=== PATIENT | female | born 1950 | race Two or more races ===

== ENCOUNTER 2016-10-24 18:42 | Inpatient (IN) | payer MEDICARE ==
[~2016-10-24] VITALS: Ht 157.5 cm; Wt 81.9 kg
--- NOTE | 2016-10-24 18:55 | NUR ---
ABDOMINAL PAIN; CAME TO ER FOR TREATMENT AND EVALUATION
--- NOTE | 2016-10-24 19:15 | NUR ---
ASSUMED CARE. RECEIVED REPORT FROM AM SHIFT JALEN MA. PT AAOX4 NO ACUTE DISTRESS NOTED, RESP EVEN AND UNLABORED. PT C/O ABDOMINAL PAIN X3 DAYS. STARTED SL 18G TO R AC, BLOOD DRAWN AND SENT TO LAB.
--- NOTE | 2016-10-24 19:21 | NUR ---
CALLED [facility] FOR TRANSPORTATION GOING TO [facility]
--- NOTE | 2016-10-24 19:23 | NUR ---
PT AMBULATORY TO THE BATHROOM WITH STEADY GAIT NOTED.
[2016-10-24 19:24] LABS: BASOPHILS # (AUTO) 0.2 /CMM (0.0-0.2); BASOPHILS % (AUTO) 1.2 % (0.0-2.0); EOSINOPHILS % (AUTO) 0.1 % (0.0-6.0); HEMATOCRIT 43 % (33-45); HEMOGLOBIN 14.4 g/dL (11.5-14.8); LYMPHOCYTES # (AUTO) 2.6 /CMM (0.8-4.8); LYMPHOCYTES % (AUTO) 20.2 % (20.0-44.0); MEAN CORPUSCULAR HEMOGLOBIN 29 PG (26.0-33.0); MEAN CORPUSCULAR HGB CONC 34 g/dl (31.0-36.0); MEAN CORPUSCULAR VOLUME 86 fL (82-100); MONOCYTES % (AUTO) 7.8 % (2.0-12.0); NEUTROPHILS # (AUTO) 9.2 /CMM (1.8-8.9); NEUTROPHILS % (AUTO) 70.7 % (43.0-81.0); PLATELET COUNT (AUTO) 224 /CMM (150-450); RDW COEFFICIENT OF VARIATION 14.4 (11.5-15.0); RED BLOOD CELL COUNT(AUTO) 4.94 MIL/uL (4.0-5.2)
[2016-10-24] MEDS ORDERED: MORPHINE SULFATE INJ 2 MG/ML DISP.SYRIN ONE (19:25)
[2016-10-24] MEDS ORDERED: ONDANSETRON HCL/PF 4 MG/2 ML VIAL ONE (19:25)
[2016-10-24] MEDS ORDERED: IV SET PRIMARY 1 EA INFUS.SET MC ONE ×2 (19:26→21:53)
[2016-10-24] MEDS ORDERED: IV NS 0.9% 1,000 ML ONE ×2 (19:26→21:53)
[2016-10-24] MEDS ORDERED: ONDANSETRON HCL/PF - ER 4 MG/2 ML VIAL IV ONE (19:30)
[2016-10-24] MEDS ORDERED: IV NS 0.9% 1,000 ML BAG IV ONE ×2 (19:30→22:00)
[2016-10-24] MEDS ORDERED: MORPHINE SULFATE INJ 2 MG/ML DISP.SYRIN IV ONE (19:30)
[2016-10-24 19:38] LABS: ALBUMIN 3.8 g/dL (3.4-5.0); BILIRUBIN,DIRECT 0.1 mg/dL (0.0-0.2); BILIRUBIN,TOTAL 0.5 mg/dL (0.2-1.0); CALCIUM, SERUM 9.3 mg/dL (8.5-10.1); CREATININE 1.1 mg/dL (0.6-1.3); POTASSIUM 3.8 mmol/L (3.5-5.1)
[2016-10-24 19:39] LABS: APPEARANCE,URINE Clear (CLEAR); BLOOD, URINE Moderate Ery/uL (NEGATIVE); COLOR,URINE Yellow (YELLOW); KETONES,URINE Trace (NEGATIVE); LEUKOCYTE ESTERASE ,URINE Negative (NEGATIVE); NITRITE, URINE Negative (NEGATIVE); PH,URINE 5.5 (5.0-8.0); PROTEIN,URINE 30 mg/dl (NEGATIVE); UGLUCOSE Negative (NEGATIVE); UROBILINOGEN,URINE 0.2 EU/dL (0.2)
[2016-10-24 19:40] LABS: BILIRUBIN,URINE MODERATE (NEGATIVE)
[2016-10-24 19:42] LABS: ADD URINE CULTURE NO; BACTERIA,URINE Few /HPF (None Seen); SQUAMOUS EPITHELIAL CELL,UR Few /HPF (None Seen); URINE AMORPHOUS URATE Few /HPF (None Seen)
--- NOTE | 2016-10-24 20:16 | NUR ---
TRANSPORT AT BEDSIDE TO TRANSPORT PT TO [facility] FOR CT ABD/PELVIS. REPORT GIVEN TO EMT.
--- NOTE | 2016-10-24 21:28 | NUR ---
PT BACK FROM [facility]. PENDING CT ABD/PELVIS RESULT.
[2016-10-24] MEDS ORDERED: PIPERACILLIN /TAZOBACTAM 3.375 G in IV D5W 50 ML IV ONE (21:30)
--- NOTE | 2016-10-24 21:30 | NUR ---
DR MONTEJO ON THE PHONE WITH GENERAL SURGEON DR COTTON.
[2016-10-24] MEDS ORDERED: PIPERACILLIN /TAZOBACTAM 3.375 G VIAL IV ONE ×3 (21:54→23:55)
--- NOTE | 2016-10-24 22:21 | NUR ---
REPORT CALLED M/S JALEN DUONG. WILL TRANSPORT PT.
--- NOTE | 2016-10-24 22:30 | NUR ---
RN NOTES ADMITTED A 66 YEARS OLD FEMALE PT FROM ER VIA [facility], WITH PRIMARY DIAGNOSIS OF ACUTE APPENDICITIS, UNDER DR FARAH. PT ALERT AND ORIENTED X4, ABDOMINAL PAIN AT TOLERABLE LEVEL AT THIS TIME 4/10. PT DENIES NAUSEA AND VOMITING. VITAL SIGNS STABLE, AFEBRILE, TEMP 98.9. IV ACCESS ON RIGHT AC PATENT AND INTACT WITH ONGOING IVF INFUSING WELL. PT SKIN CLEAR AND INTACT. PT IS AMBULATORY WITH STEADY GAIT. PLACED PT ON NPO FOR ANTICIPATED SURGERY TOMORROW. KEPT PT COMFORTABLE AND ATTENDED, WITH CALL LIGHT WITHIN REACH. ALL ORDERS NOTED AND CARRIED OUT. WILL CONTINUE TO MONITOR PT.
[2016-10-24] MEDS ORDERED: IV SET PRIMARY PUMP SET 1 EA INFUS.SET MC ONE (22:40)
[2016-10-24 23:00] VITALS: BP 106/59
[2016-10-24] MEDS ORDERED: IV D5/0.45 NACL 1,000 ML IV PRN (23:14)
[2016-10-24] MEDS ORDERED: Z GUARD REMEDY 2 OZ OINT TP PRN (23:30)
--- NOTE | 2016-10-24 23:30 | NUR ---
RN NOTES RECEIVED A CALL FROM NURSING FISH TRAPPER, PT IS SCHEDULED FOR APPENDECTOMY AT 0630 TOMORROW MORNING TO BE DONE BY DR VELEZ. PT MADE AWARE. WILL SECURE CONSENT FOR THE SURGERY.
[2016-10-24] MEDS ORDERED: IV D5/0.45 NACL 1,000 ML IV ONE (23:54)
[2016-10-24] MEDS ORDERED: SECONDARY IV SET 1 EA INFUS.SET MC ONE (23:56)
[2016-10-24] MEDS ORDERED: IV D5W 50 ML IV ONE (23:56)
[2016-10-25] MEDS ORDERED: PIPERACILLIN /TAZOBACTAM 3.375 G in IV D5W 50 ML IV SCH ×2
[2016-10-25 00:52] VITALS: BP 106/59
[2016-10-25] MEDS ORDERED: MORPHINE SULFATE INJ 2 MG/ML DISP.SYRIN ONE (02:05)
[2016-10-25] MEDS ORDERED: ACETAMINOPHEN 325 MG TABLET ONE (02:05)
[2016-10-25] MEDS: ACETAMINOPHEN 325 MG TABLET PO PRN ×2 (02:11→21:18)
--- NOTE | 2016-10-25 02:11 | NUR ---
RN NOTES VITAL SIGNS CHECKED BP 102/65 TEMP 99.9 HR 75 RR19 O2SAT 97% AT ROOM AIR. PAT COMPLAINING OF ABDOMINAL PAIN 03/24. TYLENOL 650 MG TAB GIVEN PO FOR FEVER AND MORPHINE SULFATE 2MG GIVEN IV FOR ABDOMINAL PAIN. PT DENIES NAUSEA AND VOMITING. WILL CONTINUE TO MONITOR PT.
[2016-10-25] MEDS: MORPHINE SULFATE INJ 2 MG/ML DISP.SYRIN IV PRN ×4 (02:12→22:35)
--- NOTE | 2016-10-25 02:50 | NUR ---
RN NOTES PT FOR LAPAROSCOPIC APPENDECTOMY WITH POSSIBLE OPEN BY DR VELEZ AT 0630 AM, CONSENT SECURED FROM THE PT.
[2016-10-25 04:10] LABS: BASOPHILS # (AUTO) 0.1 /CMM (0.0-0.2); BASOPHILS % (AUTO) 0.8 % (0.0-2.0); EOSINOPHILS % (AUTO) 0.2 % (0.0-6.0); HEMATOCRIT 36 % (33-45); LYMPHOCYTES # (AUTO) 2.1 /CMM (0.8-4.8); LYMPHOCYTES % (AUTO) 21.7 % (20.0-44.0); MEAN CORPUSCULAR HEMOGLOBIN 29 PG (26.0-33.0); MEAN CORPUSCULAR HGB CONC 34 g/dl (31.0-36.0); MEAN CORPUSCULAR VOLUME 86 fL (82-100); MONOCYTES # (AUTO) 0.7 /CMM (0.1-1.30); MONOCYTES % (AUTO) 7.3 % (2.0-12.0); NEUTROPHILS # (AUTO) 6.9 /CMM (1.8-8.9); PLATELET COUNT (AUTO) 198 /CMM (150-450); RED BLOOD CELL COUNT(AUTO) 4.16 MIL/uL (4.0-5.2); WHITE BLOOD COUNT (AUTO) 9.8 K/uL (4.3-11.0)
[2016-10-25 04:25] LABS: INR 1.04 (0.87-1.13); PROTHROMBIN TIME 11.2 SECS (9.5-12.7)
[2016-10-25 04:27] LABS: BILIRUBIN,TOTAL 0.5 mg/dL (0.2-1.0); CALCIUM, SERUM 8.4 mg/dL (8.5-10.1); MAGNESIUM 2.1 mg/dL (1.8-2.4); PHOSPHORUS 3.4 mg/dL (2.5-4.9); POTASSIUM 3.4 mmol/L (3.5-5.1); TOTAL PROTEIN, SERUM 6.7 g/dL (6.4-8.2)
[2016-10-25 04:35] LABS: THYROID STIMULATING HORMONE 0.76 uIU/mL (0.358-3.74)
--- NOTE | 2016-10-25 06:00 | NUR ---
RN NOTES PT WAS PICKED UP BY OR STAFF, ABDOMINAL PAIN AT TOLERABLE LEVEL AT THIS TIME. AFEBRILE, WITH LATEST TEMP OF 98.6. DUE ZOSYN WILL BE GIVEN TO OR. PT TO OR IN STABLE CONDITION.
[2016-10-25] MEDS ORDERED: LIDOCAINE HCL/PF 1% 30 ML SDV ONE (06:14)
[2016-10-25] MEDS ORDERED: BUPIVACAINE MPF W/EPI 0.25% 30 ML VIAL ONE (06:14)
[2016-10-25] MEDS ORDERED: FENTANYL PF 100MCG/2ML AMPUL ONE ×3 (06:19→09:13)
[2016-10-25] MEDS ORDERED: MIDAZOLAM HCL 2 MG/2ML VIAL ONE (06:19)
[2016-10-25] MEDS ORDERED: ROCURONIUM BROMIDE 50 MG/5 ML ONE ×2 (06:19)
[2016-10-25] MEDS ORDERED: PIPERACILLIN /TAZOBACTAM 3.375 G VIAL IV ONE (06:27)
[2016-10-25] MEDS ORDERED: IV D5W 50 ML IV ONE (06:27)
--- NOTE | 2016-10-25 07:28 | NUR ---
RECEIVED PT. REPORT FROM WOOD SAWYER NURSE. PT. CURRENTLY IN OR. WILL WAIT FOR PT. TO ARRIVE ON THE UNIT AND CONTINUE SEAN.
[2016-10-25] MEDS ORDERED: HYDROMORPHONE INJ 2 MG/ML DISP.SYRIN ONE (09:23)
[2016-10-25] MEDS ORDERED: ATOR10TA PO (10:01)
[2016-10-25] MEDS ORDERED: PANT40TA4 PO (10:01)
[2016-10-25] MEDS ORDERED: LEVO112T2 PO (10:01)
[2016-10-25] MEDS ORDERED: MELO-264 PO (10:01)
[2016-10-25] MEDS ORDERED: LINA145C PO (10:01)
[2016-10-25] MEDS ORDERED: CITA10TA9 PO (10:01)
--- NOTE | 2016-10-25 10:22 | NUR ---
PT ARRIVED ON UNIT ACCOMPANIED BY AN OR STAFF IN STABLE CONDITION. NO SOB OR SIGNS OF DISTRESS AT THIS TIME. NO PAIN EXPRESSED BY PATIENT. WILL CONTINUE TO MONITOR AND CARRY OUT ORDERS
[2016-10-25] MEDS: POTASSIUM CL. PREMIX PERIPHER. 50 ML IV SCH ×2 (12:02→13:51)
[2016-10-25] MEDS ORDERED: SECONDARY IV SET 1 EA INFUS.SET MC ONE (12:06)
[2016-10-25] MEDS: PIPERACILLIN /TAZOBACTAM 3.375 G in IV D5W 50 ML IV SCH ×2 (12:38→18:14)
[2016-10-25] MEDS: IV LR 1000 ML 1,000 ML IV PRN (12:39)
--- NOTE | 2016-10-25 14:50 | NUR ---
PT WAS ABLE TO TOLERATE THE FIST BAG OF K+, BUT COULD NOT TOLERATE ANOTHER. PO VERSION WAS ORDERED. WILL ADMINISTER AT SCHEDULED TIME.
[2016-10-25 16:00] VITALS: BP 104/54
[2016-10-25] MEDS: MAG HYDROX/AL HYDROX/SIMETH 30 ML UDC PO PRN (18:13)
[2016-10-25] MEDS ORDERED: POTASSIUM CHLORIDE 10 MEQ TABLET.SA PO ONE (18:30)
--- NOTE | 2016-10-25 19:05 | NUR ---
MS RN CLOSING NOTES PT IN STABLE CONDITION. NO SOB OR SIGNS OF DISTRESS NOTED. ALL ORDERS WERE CARRIED OUT THROUGHOUT SHIFT AND ALL SAFETY MEASURES WERE ENFORCED. WILL ENDORSE TO NIGHTSHIFT NURSE FOR SEAN
--- NOTE | 2016-10-25 19:30 | NUR ---
MS/DAIRY QUALITY ASSURANCE OFFICER; RECEIVED PT. IN BED AWAKE, ALERT AND ORIENTED X 4. PT SAID WITH LOT OF ABD PAIN DUE TO GAS. PP. ENCOURAGED TO AMBULATE. NOTED AT THIS TIME IVF ON PROGRESS BUT THE IV SITE ON LAC IS RED AND SWOLLEN. IVF I STOPPED. I ASKED THE PT. I HAVE TO REMOVED THE IV AND I WILL INSERT A NEW IV LINE AND PT OK WITH IT. WITH GUERRERO X1 AND I EMPTIED 60 ML BLOODED COLOR DRAINAGE. WITH DVT PUMP ON LOWER LEGS. BED ON LOWER POSITION AND LOCKED FOR SAFETY. SIDE RAILS ARE UP FOR SAFETY. CONTINUE TO MONITOR CALL LIGHT WITHIN REACH.
--- NOTE | 2016-10-25 19:55 | NUR ---
MS/ROOM MANAGER; PT ASSISTED TO THE BATHROOM WITH SYSTEMS PROTECTION TECHNICIAN AND ME WITH USED OF WALKER ABLE TO AMBULATE WITH PAIN. VOIDED ONLY. PT AMBULATE TOWARDS THE HALLWAY WITH WALKER TOLERATED FAIRLY.
--- NOTE | 2016-10-25 20:40 | NUR ---
MS/BELL ATTENDANT; PT IN BED AT THIS TIME. VISITED BY THE SURGEON DR. VELEZ.
--- NOTE | 2016-10-25 20:45 | NUR ---
MS/ICE PLATFORM SUPERVISOR; NEW IV LINE STARTED ON LT ARM # 20 ANGIO CATH. IVF RESUMED. ENC. TO ELEVATE THE RT ARM DUE TO SWELLING.
[2016-10-25 20:47] VITALS: BP 95/51
[2016-10-25 22:15] VITALS: BP 108/52
--- NOTE | 2016-10-25 22:42 | NUR ---
MS/RN NOTES PATIENT VERBALIZED PAIN 8/10 IN ALL OVER BODY. REQUEST FOR PAIN MEDICATION. B/P CHECKED AND INFORM TO DRINK MORE FLUIDS. B/P 108/70. CHARGE NURSE INFORM AND MADE AWARE.WILL CONTINUE TO ASSESS EFFECTIVENESS OF PAIN MEDICATION.
--- NOTE | 2016-10-26 03:25 | NUR ---
MS/RN NOTES PATIENT REPORTED SOME ABDOMINAL CRAMPING AND NO BM LAST 3 DAYS AGO. ENDORSE TO RESIDENTIAL THERAPIST PATIENT NEED MOM AND WILL BE TAKING IT BEFORE SHE GETS PAIN PILL. B/P CHECK AT 105/55 PROVIDED FLUIDS FOR PATIENT.
--- NOTE | 2016-10-26 04:39 | NUR ---
MS/RN NOTES PATIENT VERBALIZED 8/10 PAIN ALL OVER BODY. PROVIDED COMFORT MEASURE, FLUIDS AND INFORM THE NEED TO DEEP BREATH. BLOOD PRESSURE RE CHECK AT 107/58. AND RE CHECK AGAIN AT 98/56 WITH OXYGEN 2 L AT 92% VIA NC. INFORM PATIENT THAT NEED TO MONITOR AT THIS TIME TO PREFENT COMPLICATION. PATIENT WAS INFORMED AND VERBALIZE UNDERSTANDING TO HOLD TH EPAIN MEDICATION AT THIS TIME.
[2016-10-26] MEDS: PIPERACILLIN /TAZOBACTAM 3.375 G in IV D5W 50 ML IV SCH ×4 (05:28→17:35)
--- NOTE | 2016-10-26 06:40 | NUR ---
MS/SERVICE STATION HELPER; PT SAID SHE DID NOT SLEEP GOOD. IVF ON PROGRESS. NO BM VOIDED. HAS BEEN UP AND WALKED. CONTINUE TO MONITOR. GUERRERO INTACT 90 ML OUTPUT.WILL ENDORSE TO THE DAY SHIFT NURSE.
[2016-10-26] MEDS: MORPHINE SULFATE INJ 2 MG/ML DISP.SYRIN IV PRN ×3 (07:20→18:27)
--- NOTE | 2016-10-26 07:30 | NUR ---
MS RN OPENING NOTES RECEIVED PT. FROM NIGHTSHIFT NURSE IN STABLE CONDITION. A/O X4. IV LEFT FOREARM 20G INTACT AND PATENT. NO REDNESS OR INFILTRATION NOTED. LR RUNNING AT 100ML/HR. PT TOLERATING IT WELL. NO SOB OR SIGNS OF DISTRESS NOTED. BREATHING EVEN AND UNLABORED. GUERRERO INTACT AND DRAINING. BED IN LOW LOCKED POSITION, SIDE RAILS UP X2, CALL LIGHT WITHIN PT. REACH. WILL CONTINUE TO MONITOR.
[2016-10-26 07:34] LABS: CALCIUM, SERUM 8.3 mg/dL (8.5-10.1); CREATININE 1.3 mg/dL (0.6-1.3); POTASSIUM 4.1 mmol/L (3.5-5.1)
[2016-10-26 08:00] VITALS: BP 106/61
[2016-10-26] MEDS: MAG HYDROX/AL HYDROX/SIMETH 30 ML UDC PO PRN (08:47)
[2016-10-26] MEDS: DOCUSATE SODIUM 100 MG CAPSULE PO SCH (08:47)
[2016-10-26] MEDS ORDERED: IV NS 0.9% 250 ML IV ONE (13:28)
[2016-10-26 16:00] VITALS: BP 112/59
[2016-10-26] MEDS: ACETAMINOPHEN 325 MG TABLET PO PRN (16:58)
--- NOTE | 2016-10-26 17:50 | NUR ---
MS RN NOTES PT STATES THAT SHE IS MISSING HER NECKLACE AND EARRINGS. SHE STATES THAT SHE WORE THEM WHEN SHE WAS TAKEN TO THE OR FOR HER RECENT PROCEDURE, AND THEY WERE NEVER RETURNED TO HER. OR WAS CALLED AND THEY SAID THE ITEMS WERE GIVEN TO HER SON WHO WAS PRESENT WITH HER BEFORE HER OPERATION. THE SON WAS CALLED AND HE STATED THAT THE OR NURSES DID NOT GIVE HIM ANYTHING. CHARGE NURSE WAS NOTIFIED
--- NOTE | 2016-10-26 19:25 | NUR ---
MS/RN OPENING NOTES PATIENT IS ALERT, ORIENTEDX3 WITH FAMILY MEMBER. NO S/S OF SOB OR DISTRESS. PAIN MEDICATION GIVEN 30 MINUTES AGO WILL CHECK PAIN EFFECTIVENESS. CALL LIGHTS WITHIN REACH CLEAR LIQUIDS ORDERED. WILL CONTINUE MONITORING AND ATTEND NEEDS.RECEIVED ENDORSEMENT FROM AM RN REGARDING SEAN.
[2016-10-26] MEDS: IV LR 1000 ML 1,000 ML IV PRN (19:51)
[2016-10-26 20:00] VITALS: BP_SYST 125; BP_SYST 97; BP_DIAS 54; BP_DIAS 57
[2016-10-26] MEDS: HYDROCODONE/APAP 5/325MG 1 EACH TABLET PO PRN (21:54)
[2016-10-27] MEDS: PIPERACILLIN /TAZOBACTAM 3.375 G in IV D5W 50 ML IV SCH ×5 (00:24→23:46)
[2016-10-27] MEDS: MORPHINE SULFATE INJ 2 MG/ML DISP.SYRIN IV PRN ×4 (01:44→21:25)
[2016-10-27] MEDS: MAG HYDROX/AL HYDROX/SIMETH 30 ML UDC PO PRN (06:23)
--- NOTE | 2016-10-27 06:32 | NUR ---
MS/RN CLOSING NOTES PATIENT AWAKE, ALERTX3. ABLE TO VERBALIZE NEEDS AT ALL TIMES. ASSIST TO SITTING POSITION. COOPERATIVE TO CARE. IV ATB INFUSE W/ NO S/S OF ADVERSE REACTION. PATIENT REPORTED SOME PAIN IN ABDOMEN AND PREFERED TO SITON CHAIR. ASSISTED. PROVIDE INCENTIVE SPIROMETER FOR DEEP BREATHING. REQUESTED FOR MAALOX TO RELIEVE DISCOMFORT. PAIN MEDICATION TO GIVE PATIENT LEVEL PAIN IS 7/10. WILL CONTINUE TO MONITOR.
[2016-10-27] MEDS: HYDROCODONE/APAP 5/325MG 1 EACH TABLET PO PRN ×3 (06:46→18:39)
--- NOTE | 2016-10-27 06:51 | NUR ---
MS/RN NOTES PATIENT WITH ABDOMINAL PAIN OF 01/21. PROVIDED COMFORT MEASURES. REPOSITION FOR COMFORT, ASSISTED WITH AMBULATION FEW STEPS AND HELP SIT IN CHAIR, PAIN MEDICATION REQUESTED. ADM PO NORCO 5/325 TO RELIEVE PAIN. WILL MONITOR EFFECTIVENESS AND ENDORSE TO AM RN.
--- NOTE | 2016-10-27 07:51 | NUR ---
RN MS NOTES PT IN BED, AWAKE, ALERT AND ORIENTED, STILL WITH COMPLAINT OF ABDOMINAL PAIN, RESPIRATIONS NORMAL AND NOT LABORED, IV FLUIDS INFUSING WELL, CALL LIGHT WITHIN REACH, NEEDS ATTENDED.
[2016-10-27 07:59] LABS: BASOPHILS % (AUTO) 0.2 % (0.0-2.0); EOSINOPHILS % (AUTO) 0.1 % (0.0-6.0); HEMATOCRIT 41 % (33-45); HEMOGLOBIN 13.6 g/dL (11.5-14.8); LYMPHOCYTES # (AUTO) 2.8 /CMM (0.8-4.8); LYMPHOCYTES % (AUTO) 18.1 % (20.0-44.0); MEAN CORPUSCULAR HEMOGLOBIN 29 PG (26.0-33.0); MEAN CORPUSCULAR HGB CONC 33 g/dl (31.0-36.0); MEAN CORPUSCULAR VOLUME 88 fL (82-100); MONOCYTES # (AUTO) 0.5 /CMM (0.1-1.30); MONOCYTES % (AUTO) 3.4 % (2.0-12.0); NEUTROPHILS # (AUTO) 12.2 /CMM (1.8-8.9); NEUTROPHILS % (AUTO) 78.2 % (43.0-81.0); PLATELET COUNT (AUTO) 309 /CMM (150-450); RDW COEFFICIENT OF VARIATION 15.2 (11.5-15.0); RED BLOOD CELL COUNT(AUTO) 4.69 MIL/uL (4.0-5.2); WHITE BLOOD COUNT (AUTO) 15.7 K/uL (4.3-11.0)
[2016-10-27 08:00] VITALS: BP 114/61
[2016-10-27 08:08] LABS: CALCIUM, SERUM 8.9 mg/dL (8.5-10.1); CREATININE 1.1 mg/dL (0.6-1.3); POTASSIUM 3.7 mmol/L (3.5-5.1)
[2016-10-27] MEDS: DOCUSATE SODIUM 100 MG CAPSULE PO SCH (08:33)
[2016-10-27] MEDS: MELOXICAM 7.5 MG TABLET PO SCH ×2 (09:00→10:49)
[2016-10-27] MEDS: ATORVASTATIN 10 MG TABLET PO SCH ×2 (09:30→10:48)
[2016-10-27] MEDS: LEVOTHYROXINE SODIUM 112 MCG TABLET PO SCH (10:48)
[2016-10-27] MEDS: CITALOPRAM HYDROBROMIDE 10 MG TABLET PO SCH (10:49)
[2016-10-27] MEDS: PANTOPRAZOLE 40 MG TABLET.DR PO SCH (10:49)
--- NOTE | 2016-10-27 11:51 | NUR ---
RN MS NOTES PT IN BED, AWAKE, ALERT AND ORIENTED, PAIN MEDICATION GIVEN FOR PAIN MANAGEMENT ORDERED, GUERRERO DRAINING PINKISH DRAIN, PT SEEN BY NONA TECHNICAL SERVICE ENGINEER, PLAN OF CARE DISCUSSED WITH PT, VERBALIZED UNDERSTANDING, PT SEEN BY DR. VELEZ, ORDERED FOR CT OF THE ABDOMEN WITH PO CONTRAST, PT INFORMED, PT ABLE TO GO TO BATHROOM WITH STANDBY ASSISTANCE WITH A WALKER, OUT OF BED TOLERATED, NEEDS ATTENDED.
[2016-10-27] MEDS ORDERED: DIATR MEGLU/DIATRIZOATE SODIUM 30 ML BOTTLE (GASTROGRAPHIN) ONE ×2 (12:20→14:24)
[2016-10-27] MEDS: ONDANSETRON HCL/PF 4 MG/2 ML VIAL IVP PRN ×2 (14:11→21:28)
[2016-10-27 16:00] VITALS: BP 133/79
[2016-10-27] MEDS: IV LR 1000 ML 1,000 ML IV PRN (16:55)
--- NOTE | 2016-10-27 18:30 | NUR ---
RN MS NOTES PT IN BED, RESTING, ALERT AND ORIENTED, PAIN MEDICATION GIVEN FOR PAIN MANAGEMENT ORDERED, COMPLETED CT SCAN OF ABDOMEN WITH ORAL CONTRAST, AWAITING RESULTS, NOT IN DISTRESS, CALL LIGHT WITHIN REACH, ASSISTED TO BATHROOM NEEDED, PM CARE RENDERED, ALL NEEDS ATTENDED.
[2016-10-27 20:00] VITALS: BP 123/68
--- NOTE | 2016-10-27 20:00 | NUR ---
PATIENT IN BED, ALERT AND ORIENTED X4, CALM, 02 SAT IS 88%, PUT PATIENT TO 3LPM VIA NC, 02 SAT IS 93%. S/P LAPAROSCOPIC APPENDECTOMY, COMPLAINING OF PAIN OF 6/10, RECEIVED NORCO FROM AM SHIFT. ABDOMINAL SX SITES HAS NO BLEEDING, RUQ GUERRERO IS DRAIN WITH SEROSANGUINEOUS FLUID, DRESSING IS INTACT, LEFT FA PERIPHERAL LINE IS INFUSING WELL, PER ENDORSEMENT, PATIENT UNABLE TO TOLERATE SOLID FOOD, STILL ON CLEAR LIQUID DIET, ADVANCED TOLERATED. WITH EPISODES OF VOMITING, WAS GIVEN ZOFRAN FROM AM SHIFT. REPOSITIONED FOR COMFORT, NEEDS ATTENDED, CALL LIGHT WITHIN REACH.
[2016-10-28] MEDS: HYDROCODONE/APAP 5/325MG 1 EACH TABLET PO PRN ×3 (03:03→14:01)
--- NOTE | 2016-10-28 03:07 | NUR ---
PATIENT ASSISTED TO TOILET, ABLE TO AMBULATE WITH WALKER WITH SUPERVISION, NO DIFFICULTY VOIDING. GIVEN NORCO 5/325 1 TAB PO PRN FOR ABDOMINAL PAIN OF 10. WILL CONTINUE TO MONITOR.
[2016-10-28] MEDS: IV LR 1000 ML 1,000 ML IV PRN (05:35)
[2016-10-28] MEDS: PIPERACILLIN /TAZOBACTAM 3.375 G in IV D5W 50 ML IV SCH ×4 (05:36→23:47)
--- NOTE | 2016-10-28 06:50 | NUR ---
PATIENT IS ALERT AND AWAKE, NO SOB, ON 2LPM VIA NC, HAD VOMITING EPISODE X1, GIVEN ZOFRAN, PROVIDED PAIN MEDICATION DURING SHIFT, GIVEN NORCO AND MORPHINE, ASSISTED TO TOILET TO VOID. LEFT FA PERIPHERAL LINE IS PATENT AND INFUSING WELL, ALL DUE MEDICATIONS GIVEN, CALL LIGHT WITHIN REACH.
--- NOTE | 2016-10-28 06:51 | NUR ---
PATIENT IS ALERT AND AWAKE, ON 2LPM VIA NC, WHEEZING NOTED, COMPLAINING OF PAIN IN BETWEEN COUGHING TO RIGHT SIDE OF CHEST, ACTIVELY COUGHING WITH BLOODY SPUTUM, GIVEN ROBITUSSIN WITH CODEINE. KEPT COMFORTABLE, CALL LIGHT WITHIN REACH. Addendum: 10/28/16 at 0652 by TUSHAR WELSH RN DISREGARD NOTES ABOVE, NOT INTENDED FOR PATIENT
--- NOTE | 2016-10-28 07:30 | NUR ---
RN MS NOTES PT IN BED, AWAKE, ALERT AND ORIENTED, STILL WITH PAIN AT ABDOMEN, PER PT HER PAIN IS GETTING BETTER, ABLE TO WALK WITH A WALKER GOING TO THE BATHROOM, CALL LIGHT WITHIN REACH, IV FLUIDS INFUSING WELL, CALL LIGHT WITHIN REACH.
[2016-10-28 08:00] VITALS: BP 112/62
[2016-10-28] MEDS: LEVOTHYROXINE SODIUM 112 MCG TABLET PO SCH (08:35)
[2016-10-28] MEDS: CITALOPRAM HYDROBROMIDE 10 MG TABLET PO SCH (08:36)
[2016-10-28] MEDS: PANTOPRAZOLE 40 MG TABLET.DR PO SCH (08:36)
[2016-10-28] MEDS: ATORVASTATIN 10 MG TABLET PO SCH (09:00)
[2016-10-28] MEDS: DOCUSATE SODIUM 100 MG CAPSULE PO SCH (09:00)
[2016-10-28] MEDS: MELOXICAM 7.5 MG TABLET PO SCH (09:00)
[2016-10-28 09:56] LABS: CALCIUM, SERUM 8.3 mg/dL (8.5-10.1); CREATININE 1.1 mg/dL (0.6-1.3); POTASSIUM 3.7 mmol/L (3.5-5.1)
--- NOTE | 2016-10-28 13:00 | NUR ---
RN MS NOTES PT IN BED, RESTING, PAIN MEDICATION GIVEN FOR PAIN MANAGEMENT ORDERED, SEEN BY NONA RN ORTHO, PLAN OF CARE DISCUSSED WITH PT, VERBALIZED UNDERSTANDING, ASSISTED TO BATHROOM NEEDED, CALL LIGHT WITHIN REACH.
[2016-10-28 16:00] VITALS: BP 100/48
--- NOTE | 2016-10-28 19:03 | NUR ---
RN MS NOTES PT IN BED, AWAKE, ALERT AND ORIENTED, NO COMPLAINT OF PAIN AT THIS TIME, NOT IN DISTRESS, AMBULATES WITH A WALKER, STATES SHE IS FEELING A LOT BETTER, IV FLUIDS INFUSING WELL, CALL LIGHT WITHIN REACH, ALL NEEDS ATTENDED.
--- NOTE | 2016-10-28 19:25 | NUR ---
RN OPEN NOTES RECEIVED PATIENT AWAKE IN BED WITH FAMILY AT BEDSIDE. A/OX4. NO SIGNS OF DISTRESS OR DISCOMFORT. BREATHING EVEN AND UNLABORED. IV ACCESS IN LEFT FA WITH LR INFUSING, PATENT AND INTACT, NO SIGNS OF REDNESS OR INFILTRATION. PATIENT STATES PAIN IS TOLERABLE RIGHT NOW 11/21. HAS GUERRERO DRAIN WITH PINKISH FLUID NOTED. ABDOMINAL DRESSIGN C/D/I. BED IN LOW LOCKED POSITION WITH SIDE RAILS X2. CALL LIGHT WITHIN REACH. WILL CONTINUE TO MONITOR.
[2016-10-28 20:00] VITALS: BP 111/59
[2016-10-28] MEDS: MORPHINE SULFATE INJ 2 MG/ML DISP.SYRIN IV PRN (21:45)
--- NOTE | 2016-10-28 21:45 | NUR ---
RN NOTES ADMINISTERED MORPHINE SULFATE 2MG IV PRN ORDERED FOR PAIN IN RIGHT ABDOMEN 02/21. VSS BP 113/58 P77. WILL CONTINUE TO MONITOR.
[2016-10-28] MEDS ORDERED: IV SET PRIMARY PUMP SET 1 EA INFUS.SET MC ONE (23:40)
[2016-10-28] MEDS ORDERED: SECONDARY IV SET 1 EA INFUS.SET MC ONE (23:42)
[2016-10-29] MEDS: IV LR 1000 ML 1,000 ML IV PRN (01:58)
[2016-10-29] MEDS: PIPERACILLIN /TAZOBACTAM 3.375 G in IV D5W 50 ML IV SCH ×3 (06:30→17:41)
--- NOTE | 2016-10-29 07:02 | NUR ---
RN CLOSING NOTES PATIENT AWAKE IN BED. A/OX4. NO SIGNS OF DISTRESS OR DISCOMFORT. BREATHING EVEN AND UNLABORED. IV ACCESS IN LEFT FA WITH LR INFUSING, PATENT AND INTACT, NO SIGNS OF REDNESS OR INFILTRATION. PAIN IS TOLERABLE AT THIS TIME. HAS GUERRERO DRAIN WITH PINKISH FLUID NOTED. ABDOMINAL DRESSIGN C/D/I. NO SIGNIFICANT CHANGES THROUGH THE NIGHT. ALL NEEDS MET. BED IN LOW LOCKED POSITION WITH SIDE RAILS X2. CALL LIGHT WITHIN REACH. WILL ENDORSE TO AM SHIFT FOR SEAN.
[2016-10-29 07:49] LABS: BASOPHILS % (AUTO) 0.2 % (0.0-2.0); EOSINOPHILS # (AUTO) 0.1 /CMM (0.0-0.7); EOSINOPHILS % (AUTO) 1.6 % (0.0-6.0); HEMATOCRIT 31 % (33-45); HEMOGLOBIN 10.6 g/dL (11.5-14.8); LYMPHOCYTES # (AUTO) 1.4 /CMM (0.8-4.8); LYMPHOCYTES % (AUTO) 16.2 % (20.0-44.0); MEAN CORPUSCULAR HEMOGLOBIN 30 PG (26.0-33.0); MEAN CORPUSCULAR HGB CONC 34 g/dl (31.0-36.0); MEAN CORPUSCULAR VOLUME 87 fL (82-100); MONOCYTES # (AUTO) 0.8 /CMM (0.1-1.30); MONOCYTES % (AUTO) 9.4 % (2.0-12.0); NEUTROPHILS # (AUTO) 6.1 /CMM (1.8-8.9); NEUTROPHILS % (AUTO) 72.6 % (43.0-81.0); PLATELET COUNT (AUTO) 250 /CMM (150-450); RDW COEFFICIENT OF VARIATION 15.8 (11.5-15.0); RED BLOOD CELL COUNT(AUTO) 3.57 MIL/uL (4.0-5.2); WHITE BLOOD COUNT (AUTO) 8.5 K/uL (4.3-11.0)
[2016-10-29 08:00] VITALS: BP_SYST 110; BP_SYST 114; BP_DIAS 61; BP_DIAS 64
--- NOTE | 2016-10-29 08:00 | NUR ---
MS RN AM NOTES PATIENT AWAKE IN BED. A/OX4. NO SIGNS OF DISTRESS OR DISCOMFORT. BREATHING EVEN AND UNLABORED. IV ACCESS IN LEFT FA WITH LR INFUSING, PATENT AND INTACT, NO SIGNS OF REDNESS OR INFILTRATION.HAS GUERRERO DRAIN WITH PINKISH FLUID NOTED. ABDOMINAL DRESSING C/D/I.NEEDS MET AND ATTENDED.SEEN BY JAYCOB CASTELLANO,OLEKSANDR- PT REFUSED TO BE DISCHARGED TODAY AND OLEKSANDR CASTELLANO AWARE.BED IN LOW,LOCKED POSITION WITH SIDE RAILS X2. CALL LIGHT WITHIN REACH.
[2016-10-29 08:01] LABS: CALCIUM, SERUM 7.9 mg/dL (8.5-10.1); CREATININE 0.9 mg/dL (0.6-1.3); POTASSIUM 3.5 mmol/L (3.5-5.1)
[2016-10-29] MEDS: DOCUSATE SODIUM 100 MG CAPSULE PO SCH (09:00)
[2016-10-29] MEDS: ATORVASTATIN 10 MG TABLET PO SCH (09:00)
[2016-10-29] MEDS: MELOXICAM 7.5 MG TABLET PO SCH (09:00)
[2016-10-29] MEDS: CITALOPRAM HYDROBROMIDE 10 MG TABLET PO SCH (09:01)
[2016-10-29] MEDS: LEVOTHYROXINE SODIUM 112 MCG TABLET PO SCH (09:01)
[2016-10-29] MEDS: PANTOPRAZOLE 40 MG TABLET.DR PO SCH (09:01)
[2016-10-29 15:55] VITALS: BP 107/48
[2016-10-29 16:00] VITALS: BP 107/48
[2016-10-29] MEDS: HYDROCODONE/APAP 5/325MG 1 EACH TABLET PO PRN (17:44)
--- NOTE | 2016-10-29 17:59 | NUR ---
PT SITTING IN BED TALKING ON THE PHONE AND C/O SURGICAL PAIN S/P LAP APPY.NORCO GIVEN FOR PAIN MGT PRN.WILL MONITOR.PT AMBULATED ALONG THE HALLWAY EARLY AFTERNOON TOLERATED WELL.
--- NOTE | 2016-10-29 19:20 | NUR ---
RN OPEN NOTES RECEIVED PATIENT AWAKE IN BED A/OX4. NO SIGNS OF DISTRESS OR DISCOMFORT. BREATHING EVEN AND UNLABORED. IV ACCESS IN LEFT FA WITH LR INFUSING, PATENT AND INTACT, NO SIGNS OF REDNESS OR INFILTRATION. PATIENT STATES PAIN IS TOLERABLE RIGHT NOW 11/21. HAS GUERRERO DRAIN WITH PINKISH FLUID NOTED. ABDOMINAL DRESSING C/D/I. BED IN LOW LOCKED POSITION WITH SIDE RAILS X2. CALL LIGHT WITHIN REACH. WILL CONTINUE TO MONITOR.
[2016-10-29 20:33] VITALS: BP 97/52
[2016-10-30] MEDS: PIPERACILLIN /TAZOBACTAM 3.375 G in IV D5W 50 ML IV SCH ×3 (00:04→11:13)
--- NOTE | 2016-10-30 00:50 | NUR ---
RN NOTES DR. VELEZ IN ROOM TO SEE PATIENT. REMOVED GUERRERO DRAIN. PATIENT TOLERATED WELL. WILL CONTINUE TO MONITOR.
[2016-10-30] MEDS ORDERED: CEFTRIAXONE 1 G in IV D5W 50 ML IV SCH (02:00)
[2016-10-30] MEDS: IV LR 1000 ML 1,000 ML IV PRN (05:27)
--- NOTE | 2016-10-30 07:00 | NUR ---
RN CLOSING NOTES PATIENT AWAKE IN BED A/OX4. NO SIGNS OF DISTRESS OR DISCOMFORT. BREATHING EVEN AND UNLABORED. IV ACCESS IN LEFT HAND WITH LR INFUSING, PATENT AND INTACT, NO SIGNS OF REDNESS OR INFILTRATION. ABDOMINAL DRESSING WHERE GUERRERO DRAIN WAS INSERTED C/D/I. ALL NEEDS MET. NO SIGNIFICANT CHANGES THROUGH THE NIGHT. BED IN LOW LOCKED POSITION WITH SIDE RAILS X2. CALL LIGHT WITHIN REACH. WILL ENDORSE TO AM SHIFT FOR SEAN.
[2016-10-30] MEDS: PANTOPRAZOLE 40 MG TABLET.DR PO SCH (07:51)
[2016-10-30] MEDS: LEVOTHYROXINE SODIUM 112 MCG TABLET PO SCH (07:51)
[2016-10-30 08:00] VITALS: BP_SYST 112; BP_SYST 121; BP_SYST 135; BP_DIAS 61; BP_DIAS 81
--- NOTE | 2016-10-30 08:00 | NUR ---
MS RN NOTE PT. AWAKE, ALERT AND ORIENTED X4. TOLERATED PAIN. CALL LIGHT WITHIN REACH. SIDE RAILS UP. MONITOR CLOSELY.
[2016-10-30] MEDS: CITALOPRAM HYDROBROMIDE 10 MG TABLET PO SCH (08:43)
[2016-10-30] MEDS: DOCUSATE SODIUM 100 MG CAPSULE PO SCH ×2 (08:43→08:47)
[2016-10-30] MEDS: ATORVASTATIN 10 MG TABLET PO SCH ×2 (08:43→08:46)
[2016-10-30] MEDS: MELOXICAM 7.5 MG TABLET PO SCH ×2 (08:43→08:47)
[2016-10-30] MEDS ORDERED: POTASSIUM CHLORIDE 20 MEQ TAB.PRT.SR PO ONE (09:30)
[2016-10-30] MEDS ORDERED: CIPR-262 PO (10:02)
[2016-10-30] MEDS ORDERED: HYDR-3326 PO (10:02)
[2016-10-30] MEDS ORDERED: METR500T PO (10:02)
--- NOTE | 2016-10-30 14:20 | NUR ---
GIVEN DISCHARGE INSTRUCTION TO THE PT. UNDERSTOOD WELL. TOLERATED OF PAIN. REMOVED IV. PT. DISCHARGED FROM [facility] WITH FAMILY.
== END 2016-10-30 14:35 | disposition home or self-care (01) | DRG 341 ==
LOC: ER 18:47 → MED 22:00
PROVIDERS: ADMIT Nurse Practitioner Acute Care; ATTEND Nurse Practitioner Acute Care
PROC: 0DTJ4ZZ Resection of Appendix, Percutaneous Endoscopic Approach (ICD-10-PCS; principal; 2016-10-25 07:01)
DX: K35.80 Unspecified acute appendicitis (principal); N17.0 Acute kidney failure with tubular necrosis; J98.11 Atelectasis; E03.9 Hypothyroidism, unspecified; F32.9 Major depressive disorder, single episode, unspecified; K57.90 Diverticulosis of intestine, part unspecified, without perforation or abscess without bleeding; K58.9 Irritable bowel syndrome, unspecified; K43.2 Incisional hernia without obstruction or gangrene; Z86.010 Personal history of colon polyps; K57.10 Diverticulosis of small intestine without perforation or abscess without bleeding; M54.5 Low back pain; M19.90 Unspecified osteoarthritis, unspecified site; G89.29 Other chronic pain; Z87.891 Personal history of nicotine dependence; I51.7 Cardiomegaly; E66.01 Morbid (severe) obesity due to excess calories; K46.9 Unspecified abdominal hernia without obstruction or gangrene; K76.89 Other specified diseases of liver; M41.9 Scoliosis, unspecified; M51.36 Other intervertebral disc degeneration, lumbar region
CPT/HCPCS: 36415; 71010-TC; 80048-TC; 80053-TC; 80061-TC; 80076-TC; 81000-TC; 83690-TC; 83735-TC; 84100-TC; 84443-TC; 85025-TC; 85730-TC; 87081-TC; 88304-TC; 88305-TC; 94799-TC; A4606; A6402; J0696; J1100; J1170; J1885; J2250; J2270; J2405; J2543; J2704; J2710; J3010; J3480; J3490; J7030; J7050; J7060; J7120; Q9963; Z7610

== ENCOUNTER 2017-08-19 08:55 | Outpatient (CLI) | payer MEDICARE, OTHER ==
[~2017-08-19 08:55] MED LIST: ATOR10TA PO; CIPR-262 PO; CITA10TA9 PO; HYDR-3326 PO; LEVO112T2 PO; LINA145C PO; MELO-107 PO; METR500T PO; PANT40TA4 PO
[2017-08-19] MEDS ORDERED: IV NS 0.9% 250 ML IV ONE (09:18)
[2017-08-19] MEDS ORDERED: CT SWABBABLE VALVE TRANS SET 1 EA INFUS.SET MC ONE (09:18)
[2017-08-19] MEDS ORDERED: IOHEXOL-300 100 ML VIAL IV ONE (09:18)
== END 2017-08-19 23:59 | disposition home or self-care (01) ==
LOC: CT 08:55
PROVIDERS: ATTEND Physical Medicine & Rehabilitation
DX: K57.30 Diverticulosis of large intestine without perforation or abscess without bleeding (principal); K43.9 Ventral hernia without obstruction or gangrene; Z90.49 Acquired absence of other specified parts of digestive tract
CPT/HCPCS: 74160; J7050; Q9967

== ENCOUNTER 2018-04-08 05:43 | Inpatient (IN) | payer MEDICARE, OTHER ==
[~2018-04-08] VITALS: Ht 160 cm; Wt 86.2 kg
[~2018-04-08 05:43] MED LIST changes: -HYDR-3326 PO; +HYDR-3974 PO
[2018-04-08] MEDS ORDERED: ANESTHESIA TRAY IN PYXIS 1 EA TRAY MC ONE (06:55)
[2018-04-08] MEDS ORDERED: BUPIVACAINE MPF 0.5% W/EPI INJ 30 ML VIAL ONE (06:56)
[2018-04-08] MEDS ORDERED: LIDOCAINE 1% INJ 50 ML MDV IJ ONE (06:56)
[2018-04-08] MEDS ORDERED: FENTANYL PF 100MCG/2ML AMPUL ONE (08:11)
[2018-04-08] MEDS ORDERED: KETOROLAC TROMETHAMINE INJ 30 MG/ML VIAL ONE (10:03)
[2018-04-08] MEDS ORDERED: HYDROMORPHONE INJ 2 MG/ML DISP.SYRIN ONE (10:15)
[2018-04-08] MEDS ORDERED: ACETAMINOPHEN 325 MG TABLET PO PRN (10:30)
[2018-04-08] MEDS ORDERED: ONDANSETRON HCL/PF 4 MG/2 ML VIAL IVP PRN (10:30)
[2018-04-08] MEDS ORDERED: MORPHINE SULFATE INJ 2 MG/ML DISP.SYRIN IV PRN (10:30)
--- NOTE | 2018-04-08 11:00 | NUR ---
MS shelter director 63 years old female from OR brought in to unit s/p laparoscopic versus open hernia repair by Dr. Platt. Patient is awake, A/O X4. Bhutanese speaking, speaks and understanding Mozambican. Abdominal incision/lap site open to air, right lower abdomen with slight hematoma and minimal drain of blood, gauze applied. Will cont to monitor. Notified admitting MD.
[2018-04-08 11:09] VITALS: BP 134/75
[2018-04-08] MEDS: HYDROCODONE/APAP 5/325MG 1 EACH TABLET PO PRN ×3 (11:24→20:08)
[2018-04-08 12:19] VITALS: BP 133/68
[2018-04-08 16:00] VITALS: BP 111/63
--- NOTE | 2018-04-08 18:17 | NUR ---
MS RN CLOSING NOTES Patient vitals remains stable, breathing on room air, instructed to use Incentive spirometer while awake and able, verbalized understanding. Abdomen incision/lap site dressing intact, monitor for bleeding, none noted. Abdominal binder in place. No c/o nausea, no vomiting, will advance diet as tolerated. Incisional pain managed by PO PRN [place]. Voided without difficulty, no flatus yet per patient report. Maintained safety, will endorse to oncoming RN.
--- NOTE | 2018-04-08 19:10 | NUR ---
RN OPENING NOTES PT AWAKE AND ALERT, FAMILY AT BEDSIDE. PT COMPLAINS OF ABD PAIN S/P HERNIA REPAIR. NO COMPLAINTS OF SOB OR DISTRESS AT THIS TIME. PT HAS A LEFT HAND #18 IV INTACT AND PATENT. ABD BINDER IN PLACE. SAFETY PRECAUTIONS IN PLACE, BED IN LOWEST LOCKED POSITION, X2 SIDE RAILS UP AND CALL LIGHT WITHIN REACH. WILL CONTINUE TO MONITOR.
[2018-04-08 19:38] VITALS: BP 107/58
[2018-04-09] MEDS: HYDROCODONE/APAP 5/325MG 1 EACH TABLET PO PRN ×5 (00:29→22:58)
[2018-04-09] MEDS: MORPHINE SULFATE INJ 4 MG/ML DISP.SYRIN IV PRN ×2 (02:52→09:01)
--- NOTE | 2018-04-09 06:35 | NUR ---
RN CLOSING NOTES PT RESTING IN BED. NO COMPLAINTS OF SOB OR DISTRESS OVERNIGHT. PT HAS A LEFT HAND #18 IV INTACT AND PATENT. ABD BINDER IN PLACE. NO BLEEDING NOTED AT INCISION SITE. ALL PATIENT NEEDS MET OVERNIGHT. PT AMBULATED WITH ASSIST TO RESTROOM. FLATULENCE PRESENT. SAFETY PRECAUTIONS IN PLACE, BED IN LOWEST LOCKED POSITION, X2 SIDE RAILS UP AND CALL LIGHT WITHIN REACH. WILL ENDORSE TO DAY SHIFT NURSE FOR CONTINUITY OF CARE.
[2018-04-09 07:13] LABS: CALCIUM, SERUM 8.7 mg/dL (8.5-10.1); CREATININE 1.2 mg/dL (0.6-1.3); POTASSIUM 4.1 mmol/L (3.5-5.1)
[2018-04-09 07:44] LABS: BASOPHILS % (AUTO) 0.2 % (0.0-2.0); EOSINOPHILS % (AUTO) 0.2 % (0.0-6.0); HEMATOCRIT 36 % (33-45); HEMOGLOBIN 11.8 g/dL (11.5-14.8); LYMPHOCYTES # (AUTO) 2.3 /CMM (0.8-4.8); LYMPHOCYTES % (AUTO) 30.4 % (20.0-44.0); MEAN CORPUSCULAR HGB CONC 33 g/dl (31.0-36.0); MEAN CORPUSCULAR VOLUME 88 fL (82-100); MONOCYTES # (AUTO) 0.5 /CMM (0.1-1.30); MONOCYTES % (AUTO) 7.2 % (2.0-12.0); NEUTROPHILS # (AUTO) 4.7 /CMM (1.8-8.9); PLATELET COUNT (AUTO) 260 /CMM (150-450); RDW COEFFICIENT OF VARIATION 15.4 (11.5-15.0); RED BLOOD CELL COUNT(AUTO) 4.11 MIL/uL (4.0-5.2); WHITE BLOOD COUNT (AUTO) 7.6 K/uL (4.3-11.0)
[2018-04-09 07:53] VITALS: BP 92/45
--- NOTE | 2018-04-09 08:00 | NUR ---
MS RN NOTES PATIENT IN BED RESTING NO SOB OR ACUTE DISTRESS NOTED. PATIENT ALERT, ORIENTED X3. PERIPHERAL IV INTACT PATENT. BED IN LOW LOCKED POSITION. CALL LIGHT WITHIN REACH. WILL CONTINUE TO MONITOR.
[2018-04-09] MEDS: CITALOPRAM HYDROBROMIDE 10 MG TABLET PO SCH (08:05)
[2018-04-09] MEDS: PANTOPRAZOLE 40 MG TABLET.DR PO SCH (08:05)
[2018-04-09] MEDS: ATORVASTATIN 10 MG TABLET PO SCH (08:05)
[2018-04-09] MEDS: LEVOTHYROXINE SODIUM 112 MCG TABLET PO SCH (08:06)
--- NOTE | 2018-04-09 08:27 | NUR ---
WOUND CARE CONSULT WOUND CARE RECEIVED CONSULT FOR RIGHT LOWER INCISION/LAP SITE. WOUND CARE WILL DEFER THIS TO PRIMARY SURGEON WITH WOUND CARE ASSIST IF NEEDED. PATIENT WITH MARIANO AT 18, WILL SEE PRN. DISCUSSED WITH PRIMARY RN FOR TODAY.
[2018-04-09] MEDS ORDERED: MORPHINE SULFATE INJ 4 MG/ML DISP.SYRIN IV PRN (10:30)
[2018-04-09 16:00] VITALS: BP 113/60
--- NOTE | 2018-04-09 19:37 | NUR ---
RN OPENING NOTE; RECEIVED PT IN BED AWAKE AND ALERT . BREATHING EVENLY. NO SOB. NAD. SKIN WARM AND DRY. DRESSING ON THE RLQ ABD C/D/I. ALL OTHER INCISION SITES WITH GLUE INTACT WITH NO S/S OF REOPENING OR BLEEDING OR INFECTION. WITH C/O ONGOING MILD ABD PAIN . REQUESTING NORCO WHEN IT'S DUE TO BE GIVEN. FLUID INTAKE, IS AND AMBULATION ENCOURAGED, PT WITH NO BM SINCE PRIOR TO SX. REPORTED NOT PASSING GAS. WILL OBTAIN ORDER FOR LAXATIVE OR STOOL SOFTENER FROM THE MD. NEEDS ATTENDED. BED LOW LOCKED. CALL LIGHT WITHIN REACH. WILL CONT TO MONITOR.
[2018-04-09 20:00] VITALS: BP 119/64
[2018-04-09 20:15] VITALS: BP 119/64
--- NOTE | 2018-04-09 20:49 | NUR ---
SPOKE TO DR ESQUEDA REGARDING POSSIBLE ORDER FOR MOM DUE TO NO BM AND NOT PASSING MIKE. MD EMPHASIZES ON AMBULATION WITH NO NEW ORDER. PT MADE AWARE,
--- NOTE | 2018-04-09 23:00 | NUR ---
NORCO GIVEN ORDERED FOR C/O ABD PAIN. PT WAS ASSISTED TO AMBULATE TO THE BATHROOM AND BACK TO THE BED. ALL NEEDS MET. WILL CONT TO MONITOR,
--- NOTE | 2018-04-10 06:21 | NUR ---
PT IN BED DOZING INTERMITTENTLY. BREATHING EVENLY. NO SOB. NO ACUTE EVENT DURING THE NIGHT, REMAINED STABLE. PAIN CONTROLLED BY NORCO. . PO INTAKE TOLERATED WELL. ASSISTED WITH ADLS. NEEDS MET. CALL LIGHT WITHIN REACH.WILL CONT TO MONITOR AND WILL ENDORSE TO AM SHIFT FOR SEAN.
--- NOTE | 2018-04-10 08:00 | NUR ---
MS 2 RN AM NOTES RECEIVED PT IN BED AWAKE,ALERT AND ORIENTED X4. BREATHING EVENLY. NO SOB. NAD. SKIN WARM AND DRY. DRESSING ON THE RLQ ABD C/D/I. ALL OTHER INCISION SITES WITH GLUE INTACT WITH NO S/S OF REOPENING OR BLEEDING OR INFECTION. WITH C/O ONGOING MILD ABD PAIN . NORCO GIVEN PRN FOR PAIN MGT. ENCOURAGED INCREASE FLUID INTAKE AND AMBULATION.PT HAS NO BM SINCE PRIOR TO SX. REPORTED NOT PASSING GAS. ATE 20% BREAKFAST.INSTRUCTED TO AMBULATE BED LOW LOCKED. CALL LIGHT WITHIN REACH. WILL CONT TO MONITOR.
[2018-04-10] MEDS: HYDROCODONE/APAP 5/325MG 1 EACH TABLET PO PRN ×2 (08:02→13:01)
[2018-04-10] MEDS: PANTOPRAZOLE 40 MG TABLET.DR PO SCH (08:02)
[2018-04-10] MEDS: LEVOTHYROXINE SODIUM 112 MCG TABLET PO SCH (08:03)
[2018-04-10] MEDS: ATORVASTATIN 10 MG TABLET PO SCH (08:03)
[2018-04-10] MEDS: CITALOPRAM HYDROBROMIDE 10 MG TABLET PO SCH (08:03)
--- NOTE | 2018-04-10 15:08 | NUR ---
DISCHARGE INSTRUCTIONS,HEALTH TEACHING,PRESCRIPTION AND MED RECONCILIATION GIVEN TO THE PT.INSTRUCTED TO FOLLOW UP WITH DR SONYA CARDOZA IN TWO WKS.INSTRUCTED TO FOLLOW UP WITH [facility] FOR P.T. AND WOUND MGT.IV H/L REMOVED TO LT WRIST WITH NO BLEEDING NOTED.PT TOLERATED WELL.AWAITING FOR HER SISTER TO GIVE HER A RIDE.DENIES PAIN OR DISTRESS.
[2018-04-10 15:49] VITALS: BP 116/62
--- NOTE | 2018-04-10 16:30 | NUR ---
PT WAS DISCHARGED HOME ACCOMPANIED BY HER SISTER AND SON WITH STABLE V/S VIA PRIVATE CAR.DISCHARGED WITH STABLE V/S.
== END 2018-04-10 16:30 | disposition home health service (06) | DRG 355 ==
LOC: DS 05:43 → MEDSG2 11:04
PROVIDERS: ADMIT Surgery; ATTEND Internal Medicine
PROC: 0WQF4ZZ Repair Abdominal Wall, Percutaneous Endoscopic Approach (ICD-10-PCS; principal; 2018-04-08 07:30)
DX: K43.6 Other and unspecified ventral hernia with obstruction, without gangrene (principal); K57.90 Diverticulosis of intestine, part unspecified, without perforation or abscess without bleeding; F32.9 Major depressive disorder, single episode, unspecified; D63.8 Anemia in other chronic diseases classified elsewhere; M19.90 Unspecified osteoarthritis, unspecified site; G89.29 Other chronic pain; M54.9 Dorsalgia, unspecified; E03.9 Hypothyroidism, unspecified; E78.5 Hyperlipidemia, unspecified; E66.9 Obesity, unspecified; Z68.34 Body mass index [BMI] 34.0-34.9, adult; Z87.891 Personal history of nicotine dependence; K66.0 Peritoneal adhesions (postprocedural) (postinfection)
CPT/HCPCS: 36415; 80048-TC; 85025-TC; 87081-TC; A6253; A6402; J1170; J1885; J2270; J2704; J3010; J3490; J7120; Z7610

== ENCOUNTER 2018-08-05 12:55 | Emergency (ER) | payer MEDICARE, OTHER ==
[~2018-08-05] VITALS: Ht 160 cm; Wt 88.9 kg
[~2018-08-05 12:55] MED LIST changes: -CIPR-262 PO; -METR500T PO
--- NOTE | 2018-08-05 13:10 | NUR ---
PATIENT BROUGHT SELF IN FOR MECHANICAL GROUND LEVEL FALL. NOTED WITH LAC TO NASAL BRIDGE AND PAIN IN THE BILATERAL KNEE'S. DENIES KO NO SYNCOPE.
[2018-08-05] MEDS ORDERED: HYDROCODONE/APAP 5/325MG 1 EACH TABLET ONE (13:50)
[2018-08-05] MEDS ORDERED: HYDROCODONE/APAP 5/325MG 1 EACH TABLET PO ONE (14:00)
--- NOTE | 2018-08-05 14:41 | NUR ---
Patient discharged to home in stable condition. Written and verbal after care instructions given. Patient verbalizes understanding of instruction.
[2018-08-05 14:42] VITALS: BP 144/76
== END 2018-08-05 14:43 | disposition home or self-care (01) ==
LOC: ER 12:55
DX: S83.8X2A Sprain of other specified parts of left knee, initial encounter (principal); S00.31XA Abrasion of nose, initial encounter; M19.90 Unspecified osteoarthritis, unspecified site; E03.9 Hypothyroidism, unspecified; R51 Headache; Z98.890 Other specified postprocedural states; Z79.899 Other long term (current) drug therapy; W01.0XXA Fall on same level from slipping, tripping and stumbling without subsequent striking against object, initial encounter; Y93.01 Activity, walking, marching and hiking; Y92.89 Other specified places as the place of occurrence of the external cause; Y99.8 Other external cause status
CPT/HCPCS: 70486-TC; 73564-TC

== ENCOUNTER 2018-11-28 14:02 | Outpatient (CLI) | payer MEDICARE, OTHER | END 2018-11-28 23:59 | disposition home or self-care (01) | LOC: MRI 14:02 | PROVIDERS: ATTEND Surgery | DX: K57.30 Diverticulosis of large intestine without perforation or abscess without bleeding (principal); N26.1 Atrophy of kidney (terminal); Z98.890 Other specified postprocedural states | CPT/HCPCS: 72195-TC; 74181-TC ==

== ENCOUNTER → 2019-04-21 | Outpatient (CLI) | payer MEDICARE, OTHER | END | disposition home or self-care (01) | LOC: MSC 13:25 | PROVIDERS: ATTEND Anesthesiology | DX: M51.36 Other intervertebral disc degeneration, lumbar region (principal); M47.27 Other spondylosis with radiculopathy, lumbosacral region; M53.3 Sacrococcygeal disorders, not elsewhere classified; M79.2 Neuralgia and neuritis, unspecified; M25.9 Joint disorder, unspecified; Z79.891 Long term (current) use of opiate analgesic; Z79.899 Other long term (current) drug therapy ==

== ENCOUNTER → 2019-05-19 | Outpatient (CLI) | payer MEDICARE, OTHER | END | disposition home or self-care (01) | LOC: MSC 11:45 | PROVIDERS: ATTEND Anesthesiology | DX: M51.36 Other intervertebral disc degeneration, lumbar region (principal); M47.27 Other spondylosis with radiculopathy, lumbosacral region; M53.3 Sacrococcygeal disorders, not elsewhere classified; M79.2 Neuralgia and neuritis, unspecified; M25.9 Joint disorder, unspecified; Z79.891 Long term (current) use of opiate analgesic; Z79.899 Other long term (current) drug therapy ==

== ENCOUNTER 2019-06-01 06:35 | Day surgery (SDC) | payer MEDICARE, OTHER ==
[2019-06-01] MEDS ORDERED: IOHEXOL 50 ML IV ONE (08:33)
[2019-06-01] MEDS ORDERED: DEXAMETHASONE SOD PHOSPHATE 10 MG/ML VIAL ONE ×2 (08:34→08:35)
[2019-06-01] MEDS ORDERED: LIDOCAINE HCL/MPF 1% 30 ML VIAL IJ ONE (08:34)
[2019-06-01] MEDS ORDERED: BUPIVACAINE 0.25% 75 MG/30 ML VIAL ONE (08:34)
== END 2019-06-01 10:05 | disposition home or self-care (01) ==
LOC: DS 06:35
PROVIDERS: ATTEND Anesthesiology
DX: M47.26 Other spondylosis with radiculopathy, lumbar region (principal); M51.16 Intervertebral disc disorders with radiculopathy, lumbar region; M54.5 Low back pain; G89.29 Other chronic pain; F32.9 Major depressive disorder, single episode, unspecified; K21.9 Gastro-esophageal reflux disease without esophagitis; E03.9 Hypothyroidism, unspecified
CPT/HCPCS: 64483; 64484; 72020; A6209; J1100 ×2; J2704; J3490; Q9967

== ENCOUNTER 2022-01-19 15:34 | Emergency (ER) | payer MEDICARE, OTHER ==
[~2022-01-19] VITALS: Ht 160 cm; Wt 90.7 kg
[~2022-01-19 15:34] MED LIST changes: -PANT40TA4 PO; +PANT40TA49 PO
[2022-01-19] MEDS ORDERED: MECLIZINE HCL 12.5 MG TABLET PO ONE (16:00)
[2022-01-19] MEDS ORDERED: ONDANSETRON HCL/PF 4 MG/2 ML VIAL IVP ONE (16:00)
--- NOTE | 2022-01-19 16:00 | NUR ---
PATIENT TAKEN VIA GURNEY TO CT SCAN
[2022-01-19] MEDS ORDERED: ONDANSETRON HCL/PF 4 MG/2 ML VIAL ONE (16:09)
[2022-01-19] MEDS ORDERED: MECLIZINE HCL 25 MG TABLET ONE (16:10)
[2022-01-19 16:21] LABS: BASOPHILS % (AUTO) 0.3 % (0.0-2.0); EOSINOPHILS % (AUTO) 0.3 % (0.0-6.0); HEMATOCRIT 38 % (33-45); HEMOGLOBIN 12.8 g/dL (11.5-14.8); LYMPHOCYTES # (AUTO) 2.3 K/uL (0.8-4.8); LYMPHOCYTES % (AUTO) 32.3 % (20.0-44.0); MEAN CORPUSCULAR HGB CONC 33 g/dl (31.0-36.0); MEAN CORPUSCULAR VOLUME 84 fL (82-100); MONOCYTES # (AUTO) 0.3 K/uL (0.1-1.30); MONOCYTES % (AUTO) 4.1 % (2.0-12.0); NEUTROPHILS # (AUTO) 4.4 K/uL (1.8-8.9); PLATELET COUNT (AUTO) 222 K/uL (150-450); RED BLOOD CELL COUNT(AUTO) 4.58 MIL/uL (4.0-5.2)
[2022-01-19 16:31] LABS: CALCIUM, SERUM 9.6 mg/dL (8.5-10.1); CARBON DIOXIDE 28 mmol/L (21-32); CHLORIDE 103 mmol/L (98-107); CREATININE 0.9 mg/dL (0.6-1.3); GLUCOSE 110 mg/dL (74-106); POTASSIUM 4.5 mmol/L (3.5-5.1); SODIUM SERUM 140 mmol/L (136-145); UREA NITROGEN, BLOOD 22 mg/dL (7-18)
[2022-01-19 16:37] LABS: ALANINE AMINOTRANSFERASE 17 U/L (12-78); ALBUMIN 4.2 g/dL (3.4-5.0); ALKALINE PHOSPHATASE 86 U/L (46-116); ASPARTATE AMINOTRANSFERASE 18 U/L (15-37); BILIRUBIN,DIRECT 0.1 mg/dL (0.0-0.2); BILIRUBIN,TOTAL 0.4 mg/dL (0.2-1.0)
[2022-01-19] MEDS ORDERED: MECL-159 PO (16:54)
[2022-01-19] MEDS ORDERED: ONDA4TAB11 PO (16:54)
[2022-01-19 17:45] VITALS: BP 129/76
--- NOTE | 2022-01-19 17:53 | NUR ---
IV removed. Catheter intact and site benign. Pressure and 4x4 applied to site. No bleeding noted.Patient discharged to home in stable condition. Written and verbal after care instructions given. Patient verbalizes understanding of instruction.
== END 2022-01-19 17:57 | disposition home or self-care (01) ==
LOC: ER 15:41
DX: R42 Dizziness and giddiness (principal); E03.9 Hypothyroidism, unspecified; Z98.890 Other specified postprocedural states; Z79.899 Other long term (current) drug therapy
CPT/HCPCS: 36415; 70450; 80048; 80076; 84484; 85025; 93005; 96374; 99285; J2405; J8597

== ENCOUNTER 2022-09-13 12:31 | Emergency (ER) | payer MEDICARE, OTHER ==
[~2022-09-13] VITALS: Ht 162.6 cm; Wt 90.7 kg
[~2022-09-13 12:31] MED LIST changes: +MECL-159 PO; +ONDA4TAB11 PO
--- NOTE | 2022-09-13 13:30 | NUR ---
COVID AND FLU SWABS TAKEN AND SENT TO LAB.
--- NOTE | 2022-09-13 13:30 | NUR ---
GLOBAL MARKETING SPECIALIST AT BEDSIDE
[2022-09-13] MEDS ORDERED: GUAI-671 PO (14:31)
[2022-09-13] MEDS ORDERED: AZIT250T PO (14:31)
[2022-09-13 14:46] VITALS: BP 121/61
--- NOTE | 2022-09-13 14:46 | NUR ---
Patient discharged to home in stable condition. Written and verbal after care instructions given. Patient verbalizes understanding of instruction.
== END 2022-09-13 14:47 | disposition home or self-care (01) ==
LOC: ER 12:43
DX: J18.9 Pneumonia, unspecified organism (principal); E03.9 Hypothyroidism, unspecified; Z98.890 Other specified postprocedural states; Z79.899 Other long term (current) drug therapy; Z20.822 Contact with and (suspected) exposure to COVID-19
CPT/HCPCS: 71045-TC; C9803